=== PATIENT | female | born 1985 | race Caucasian/White ===

== ENCOUNTER 2017-06-18 19:40 | Inpatient (IN) | payer SELFPAY ==
[~2017-06-18] VITALS: Ht 160 cm; Wt 72.6 kg
[2017-06-18] MEDS ORDERED: LACTATED RINGERS 1,000 ML IV SCH (20:03)
[2017-06-18] MEDS ORDERED: METHYLERGONOVINE 0.2 MG/ML AMP IM PRN (20:05)
[2017-06-18] MEDS ORDERED: LACTATED RINGERS 500 ML IV ONE (20:05)
[2017-06-18] MEDS ORDERED: CARBOPROST 250 MCG/ML AMP IM PRN (20:05)
[2017-06-18] MEDS ORDERED: OXYTOCIN 20 UNITS in LACTATED RINGERS 1,000 ML IV SCH (20:10)
[2017-06-18 20:35] LABS: BASOPHILS % (AUTO) 0.2 % (0.0-2.0); EOSINOPHILS # (AUTO) 0.1 K/uL (0-0.4); EOSINOPHILS % (AUTO) 1.1 % (0.0-4.0); HEMATOCRIT 39.8 % (36-48); HEMOGLOBIN 13.9 g/dL (12.0-16.0); LYMPHOCYTES # (AUTO) 1.9 K/uL (2.5-16.5); LYMPHOCYTES % (AUTO) 17.1 % (20.5-51.1); MEAN CORPUSCULAR HEMOGLOBIN 29 pg (27-31); MEAN CORPUSCULAR HGB CONC 35 g/dL (33-37); MEAN CORPUSCULAR VOLUME 84.4 fL (80-94); MONOCYTES % (AUTO) 8.9 % (1.7-9.3); NEUTROPHILS # (AUTO) 8.2 K/uL (1.8-7.7); NEUTROPHILS % (AUTO) 72.7 % (42.2-75.2); PLATELET COUNT (AUTO) 262 K/uL (140-450); RED BLOOD CELL COUNT(AUTO) 4.72 MIL/uL (4.20-5.40); RED CELL DISTRIBUTION WIDTH 14.4 % (11.6-13.7); WHITE BLOOD COUNT (AUTO) 11.3 K/uL (4.8-10.8)
[2017-06-18 20:45] LABS: BILIRUBIN,URINE NEGATIVE (NEGATIVE); BLOOD, URINE NEGATIVE (NEGATIVE); COLOR,URINE YELLOW (YELLOW); LEUKOCYTE ESTERASE ,URINE TRACE (NEGATIVE); NITRITE, URINE NEGATIVE (NEGATIVE); PH,URINE 7.5 (5.0-9.0); UGLUCOSE NEGATIVE (NEGATIVE)
[2017-06-18 20:52] VITALS: BP 103/83
[2017-06-18 20:53] LABS: APPEARANCE,URINE SLIGHTLY CLOUDY (CLEAR)
[2017-06-18 20:54] LABS: RBC,URINE 0-5 (RARE) /HPF (0-5); WBC,URINE 0-5 (RARE) /HPF (0-5)
[2017-06-18] MEDS ORDERED: OXYTOCIN 20 UNITS/LR PREMIX 1,000 ML IV ONE (21:09)
[2017-06-18] MEDS ORDERED: FERR-252 PO (22:22)
[2017-06-18] MEDS ORDERED: PREN-546 PO (22:22)
[2017-06-18] MEDS ORDERED: CALCIUM (22:22)
[2017-06-19] MEDS ORDERED: BUPIVACAINE 0.125%/NS PREMIX 250 ML ONE (00:11)
[2017-06-19] MEDS ORDERED: METHYLERGONOVINE 0.2 MG/ML AMP ONE (08:42)
[2017-06-19] MEDS ORDERED: OXYTOCIN 10 UNITS/ML VIAL ONE (08:42)
[2017-06-19] MEDS ORDERED: OXYTOCIN 10 UNITS/ML VIAL IM PRN (09:00)
[2017-06-19] MEDS ORDERED: MEASLES, MUMPS, AND RUBELLA 1 VIAL SQVAC PRN (09:00)
[2017-06-19] MEDS ORDERED: METHYLERGONOVINE 0.2 MG/ML AMP IM PRN (09:00)
--- NOTE | 2017-06-19 11:32 | NUR ---
PATIENT HAS BEEN SCREENED AND CATEGORIZED LOW NUTRITION RISK. PATIENT WILL BE SEEN WITHIN 7 DAYS OF ADMISSION. 06/25/[address]
[2017-06-19] MEDS ORDERED: BENZOCAINE/MENTHOL 20%-0.5% 60 GM CAN TP PRN (11:45)
[2017-06-19] MEDS ORDERED: TEMAZEPAM 15 MG CAP PO PRN (11:45)
[2017-06-19] MEDS ORDERED: oxyCODONE/APAP 5/325 MG 1 TAB TAB PO PRN (11:45)
[2017-06-19] MEDS ORDERED: IBUPROFEN 800 MG TAB PO PRN (11:45)
[2017-06-19] MEDS ORDERED: HYDROcodone/APAP 5/325 MG 1 TAB TAB ONE (11:55)
[2017-06-19] MEDS: HYDROcodone/APAP 5/325 MG 1 TAB TAB PO PRN ×2 (11:57→20:35)
[2017-06-19] MEDS ORDERED: DOCUSATE SOD/SENNA 50/8.6 MG 1 TAB PO SCH (21:00)
[2017-06-20 05:48] LABS: HEMATOCRIT 39.4 % (36-48); HEMOGLOBIN 13.1 g/dL (12.0-16.0)
[2017-06-20] MEDS: HYDROcodone/APAP 5/325 MG 1 TAB TAB PO PRN (08:29)
[2017-06-20] MEDS ORDERED: MAGNESIUM HYDROXIDE 2400 MG/30 ML UDC PO PRN (08:30)
== END 2017-06-20 21:50 | disposition home or self-care (01) | DRG 775 ==
LOC: MLD 19:40 → MFCC 06-19 13:05
PROVIDERS: ADMIT Obstetrics & Gynecology; ATTEND Obstetrics & Gynecology
PROC: 10907ZC Drainage of Amniotic Fluid, Therapeutic from Products of Conception, Via Natural or Artificial Opening (ICD-10-PCS; principal; 2017-06-19)
PROC: 10E0XZZ Delivery of Products of Conception, External Approach (ICD-10-PCS; 2017-06-19)
PROC: 3E0R3BZ Introduction of Anesthetic Agent into Spinal Canal, Percutaneous Approach (ICD-10-PCS; 2017-06-19)
PROC: 00HU33Z Insertion of Infusion Device into Spinal Canal, Percutaneous Approach (ICD-10-PCS; 2017-06-19)
DX: O77.0 Labor and delivery complicated by meconium in amniotic fluid (principal); Z37.0 Single live birth; Z3A.39 39 weeks gestation of pregnancy; Z83.3 Family history of diabetes mellitus
CPT/HCPCS: 36415; 51702; 59409; 81001; 85018; 85025; 86592; 86886; 86900; 86901; J2210; J2590; J3490; J7120